=== PATIENT | male | born 2000 ===

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

== ENCOUNTER → 2020-03-25 | Outpatient (CLI) | payer OTHER | END | disposition home or self-care (01) | LOC: LAB SHORT 10:59 → LAB EV 10:59 | DX: J02.9 Acute pharyngitis, unspecified (principal) | CPT/HCPCS: 87081 ==